=== PATIENT | female | born 1990 | race Two or more races ===

== ENCOUNTER → 2020-08-15 08:51 | Outpatient (BNVA) | payer OTHER, SELFPAY | PROVIDERS: Visit Provider Physician Assistant | DX: E66.3 Overweight (principal); Z68.28 Body mass index [BMI] 28.0-28.9, adult; K90.49 Malabsorption due to intolerance, not elsewhere classified; Z98.84 Bariatric surgery status | CPT/HCPCS: 99024; 99214 ==

== ENCOUNTER → 2020-08-27 08:23 | Outpatient (BNVA) | payer OTHER, SELFPAY | PROVIDERS: PCP Internal Medicine; Visit Provider Physician Assistant | DX: Z76.89 Persons encountering health services in other specified circumstances (principal) ==

== ENCOUNTER → 2020-09-16 08:13 | Outpatient (BNVA) | payer OTHER, SELFPAY | PROVIDERS: PCP Internal Medicine; Visit Provider Dietitian, Registered | DX: Z76.89 Persons encountering health services in other specified circumstances (principal) ==

== ENCOUNTER → 2020-10-17 09:09 | Outpatient (BNVA) | payer OTHER, SELFPAY | PROVIDERS: PCP Internal Medicine; Visit Provider Surgery | DX: E66.3 Overweight (principal); Z68.28 Body mass index [BMI] 28.0-28.9, adult; K91.2 Postsurgical malabsorption, not elsewhere classified; Z90.3 Acquired absence of stomach [part of]; Z98.84 Bariatric surgery status | CPT/HCPCS: 99212 ==

== ENCOUNTER 2020-11-05 09:05 | Outpatient (REF) | payer OTHER, SELFPAY ==
[2020-11-05 10:03] LABS: MANUAL DIFF FLAG NO
[2020-11-05 10:14] LABS: Basophils Percent Auto 0.4 % (0-2); Eosinophils Absolute Auto 0.2 X10*3/uL (0.0-0.4); Hematocrit 38.7 % (37-47); Hemoglobin 12.2 g/dl (12.0-16.0); Imm Gran Abs Auto 0.01 X10*3/uL (0.00-0.03); Imm Gran Pct Auto 0.2 % (0.0-0.4); Lymphocytes Absolute Auto 1.8 X10*3/uL (1.2-4.9); Lymphocytes Percent Auto 37.9 % (20-40); Mean Corpuscular HGB Conc 31.5 g/dl (31.0-35.0); Mean Corpuscular Hemoglobin 28.8 pg (27.0-33.0); Mean Corpuscular Volume 91.5 fL (80-98); Mean Platelet Volume 10.3 fL (9.4-12.3); Monocytes Absolute Auto 0.4 X10*3/uL (0.1-1.2); Monocytes Percent Auto 8.3 % (2-11); Neutrophils Absolute Auto 2.3 X10*3/uL (2.0-8.3); Neutrophils Percent Auto 48.2 % (45-73); Platelet Count 223 X10*3/uL (160-400); Red Blood Count 4.23 X10*6/uL (4.20-5.50); Red Cell Distribution Width 13.4 % (11.0-16.0); White Blood Count 4.8 X10*3/uL (4.8-10.8)
[2020-11-05 10:48] LABS: Alanine Aminotransferase 20 U/L (0-31); Albumin Level 3.9 g/dL (3.5-5.0); Alkaline Phosphatase 37 U/L (39-117); Anion Gap 12 (12-20); Aspartate Amino Transferase 17 U/L (5-31); Bilirubin Total 0.6 mg/dL (0.0-1.0); Blood Urea Nitrogen 21 mg/dL (9-16); Calcium 8.9 mg/dL (8.4-10.2); Carbon Dioxide 27 mmol/L (22-29); Chloride 104 mmol/L (96-108); Cholesterol 132 mg/dL; Estimated Glomerular Filt Rate > 60; Glucose Fasting 79 mg/dL (60-99); HDL Cholesterol 47 mg/dL; Iron 79 mcg/dL (30-160); LDL Cholesterol Calculated 75 mg/dl; Percent Iron Saturation 25 % (15-50); Potassium 4.2 mmol/l (3.3-5.1); Sodium 139 mmol/L (135-145); Total Iron Binding Capacity 322 mcg/dL (228-428); Total Protein 6.3 g/dL (6.5-8.0); Triglycerides 52 mg/dL; Unsaturated Iron Binding 243 ug/dL
[2020-11-05 10:56] LABS: Thyroid Stimulating Hormone 1.57 uIU/mL (0.32-4.0); Vitamin D 25-OH Total 51.1 ng/mL (>30)
[2020-11-05 10:58] LABS: Vitamin B12 765 pg/mL (200-900)
[2020-11-09 11:52] LABS: Vitamin B1 21 nmol/L (8-30)
[2020-11-09 14:32] LABS: Zinc 73 mcg/dL (60-130)
[2020-11-12 12:57] LABS: Vitamin A 26 mcg/dL (38-98)
== END 2020-11-05 09:06 | disposition home or self-care (01) ==
LOC: HO.LAB 09:05
PROVIDERS: PCP Internal Medicine; Visit Provider Surgery
DX: Z01.818 Encounter for other preprocedural examination (principal); K91.2 Postsurgical malabsorption, not elsewhere classified; Z90.3 Acquired absence of stomach [part of]
CPT/HCPCS: 36415; 80053; 80061; 82306; 82607; 83540; 84425; 84443; 84590; 84630; 85025

== ENCOUNTER → 2020-11-19 08:15 | Outpatient (BNVA) | payer OTHER, SELFPAY | PROVIDERS: PCP Internal Medicine; Visit Provider Dietitian, Registered | DX: Z76.89 Persons encountering health services in other specified circumstances (principal) ==

== ENCOUNTER 2021-01-17 09:24 | Outpatient (REF) | payer OTHER, SELFPAY ==
[2021-01-22 23:22] LABS: Vitamin A 30 mcg/dL (38-98)
== END 2021-01-17 09:25 | disposition home or self-care (01) ==
LOC: HO.LAB 09:24
PROVIDERS: PCP Internal Medicine; Visit Provider Surgery
DX: Z01.818 Encounter for other preprocedural examination (principal); E50.9 Vitamin A deficiency, unspecified
CPT/HCPCS: 36415; 84590

== ENCOUNTER → 2021-01-21 08:12 | Outpatient (BNVA) | payer OTHER, SELFPAY | PROVIDERS: PCP Internal Medicine; Visit Provider Surgery ==

== ENCOUNTER 2021-03-04 09:12 | Outpatient (REF) | payer OTHER, SELFPAY ==
[2021-03-08 13:37] LABS: Vitamin A 34 mcg/dL (38-98)
== END 2021-03-04 09:13 | disposition home or self-care (01) ==
LOC: HO.LAB 09:12
PROVIDERS: PCP Internal Medicine; Visit Provider Surgery
DX: Z01.818 Encounter for other preprocedural examination (principal); K91.2 Postsurgical malabsorption, not elsewhere classified; E50.9 Vitamin A deficiency, unspecified; Z98.84 Bariatric surgery status; Z90.3 Acquired absence of stomach [part of]
CPT/HCPCS: 36415; 84590; 99212

== ENCOUNTER 2021-04-04 10:13 | Outpatient (REF) | payer OTHER, SELFPAY ==
[2021-04-04 11:32] LABS: MANUAL DIFF FLAG NO
[2021-04-04 11:51] LABS: Basophils Percent Auto 0.3 % (0-2); Eosinophils Absolute Auto 0.2 X10*3/uL (0.0-0.4); Hematocrit 39.2 % (37-47); Hemoglobin 12.4 g/dl (12.0-16.0); Imm Gran Abs Auto 0.01 X10*3/uL (0.00-0.03); Imm Gran Pct Auto 0.2 % (0.0-0.4); Lymphocytes Absolute Auto 2.3 X10*3/uL (1.2-4.9); Lymphocytes Percent Auto 39.1 % (20-40); Mean Corpuscular HGB Conc 31.6 g/dl (31.0-35.0); Mean Corpuscular Hemoglobin 28.6 pg (27.0-33.0); Mean Corpuscular Volume 90.5 fL (80-98); Mean Platelet Volume 10.1 fL (9.4-12.3); Monocytes Absolute Auto 0.4 X10*3/uL (0.1-1.2); Monocytes Percent Auto 6.9 % (2-11); Neutrophils Absolute Auto 2.9 X10*3/uL (2.0-8.3); Neutrophils Percent Auto 49.5 % (45-73); Platelet Count 240 X10*3/uL (160-400); Red Blood Count 4.33 X10*6/uL (4.20-5.50); Red Cell Distribution Width 13.1 % (11.0-16.0); White Blood Count 5.8 X10*3/uL (4.8-10.8)
[2021-04-04 11:52] LABS: Estimated Average Glucose 94 mg/dL; Hemoglobin A1c % 4.9 %
[2021-04-04 12:12] LABS: Alanine Aminotransferase 26 U/L (0-31); Albumin Level 4.3 g/dL (3.5-5.0); Alkaline Phosphatase 43 U/L (39-117); Anion Gap 13 (12-20); Aspartate Amino Transferase 23 U/L (5-31); Bilirubin Total 0.7 mg/dL (0.0-1.0); Blood Urea Nitrogen 19 mg/dL (9-16); C Reactive Protein 0.06 mg/dL (< or = 0.50); Calcium 9.5 mg/dL (8.4-10.2); Carbon Dioxide 25 mmol/L (22-29); Chloride 105 mmol/L (96-108); Cholesterol 152 mg/dL; Estimated Glomerular Filt Rate > 60; Glucose Random 72 mg/dL (60-115); HDL Cholesterol 61 mg/dL; Iron 67 mcg/dL (30-160); LDL Cholesterol Calculated 80 mg/dl; Percent Iron Saturation 17 % (15-50); Potassium 4.1 mmol/L (3.3-5.1); Sodium 139 mmol/L (135-145); Total Iron Binding Capacity 391 mcg/dL (228-428); Total Protein 6.9 g/dL (6.5-8.0); Triglycerides 59 mg/dL; Unsaturated Iron Binding 324 ug/dL
[2021-04-04 12:28] LABS: Folate > 20.0 ng/mL (> or = 4.0); Vitamin B12 974 pg/mL (200-900)
[2021-04-04 12:47] LABS: Ferritin 14 ng/mL (10-122); TSH reflex Free T4 0.69 uIU/mL (0.32-4.0); Vitamin D 25-OH Total 54.3 ng/mL (>30)
[2021-04-08 13:33] LABS: Calcium (PTHI) 9.5 mg/dL (8.6-10.2); PTHI 44 pg/mL (14-64)
[2021-04-09 01:37] LABS: Zinc 86 mcg/dL (60-130)
[2021-04-09 16:31] LABS: Vitamin A 33 mcg/dL (38-98)
[2021-04-10 07:22] LABS: Vitamin B1 22 nmol/L (8-30)
== END 2021-04-04 10:14 | disposition home or self-care (01) ==
LOC: HO.LAB 10:13
PROVIDERS: Surgery; PCP Internal Medicine; Visit Provider Physician Assistant
DX: Z01.818 Encounter for other preprocedural examination (principal); E66.3 Overweight; E50.9 Vitamin A deficiency, unspecified; F50.9 Eating disorder, unspecified; Z98.84 Bariatric surgery status
CPT/HCPCS: 36415; 80053; 80061; 82306; 82607; 82728; 82746; 83036; 83525; 83540; 83970; 84425; 84443; 84590; 84630; 85025; 86140

== ENCOUNTER → 2021-04-14 09:56 | Outpatient (BNVA) | payer OTHER, SELFPAY | PROVIDERS: PCP Internal Medicine; Visit Provider Surgery | DX: E66.3 Overweight (principal); Z68.26 Body mass index [BMI] 26.0-26.9, adult | CPT/HCPCS: 99212 ==

== ENCOUNTER 2021-06-10 09:50 | Outpatient (REF) | payer OTHER, SELFPAY ==
[2021-06-14 20:55] LABS: Vitamin A 39 mcg/dL (38-98)
== END 2021-06-10 09:51 | disposition home or self-care (01) ==
LOC: HO.LAB 09:50
PROVIDERS: PCP Internal Medicine; Visit Provider Surgery
DX: Z01.818 Encounter for other preprocedural examination (principal); E50.9 Vitamin A deficiency, unspecified
CPT/HCPCS: 36415; 84590

== ENCOUNTER → 2021-06-16 09:04 | Outpatient (BNVA) | payer OTHER, SELFPAY | PROVIDERS: PCP Internal Medicine; Visit Provider Physician Assistant ==

== ENCOUNTER → 2021-06-27 13:37 | Outpatient (BNVA) | payer OTHER, SELFPAY | PROVIDERS: PCP Internal Medicine; Visit Provider Advanced Practice Midwife | DX: Z31.9 Encounter for procreative management, unspecified (principal); E66.3 Overweight; Z68.27 Body mass index [BMI] 27.0-27.9, adult; Z98.84 Bariatric surgery status | CPT/HCPCS: 99212 ==

== ENCOUNTER → 2021-09-10 08:06 | Outpatient (BNVA) | payer OTHER, SELFPAY | PROVIDERS: PCP Internal Medicine; Visit Provider Dietitian, Registered | DX: E66.3 Overweight (principal) | CPT/HCPCS: 97803 ==

== ENCOUNTER → 2021-09-22 09:28 | Outpatient (BNVA) | payer OTHER, SELFPAY | PROVIDERS: PCP Internal Medicine; Referring Provider Internal Medicine; Visit Provider Physician Assistant Surgical | DX: E66.3 Overweight (principal); L98.7 Excessive and redundant skin and subcutaneous tissue; Z68.26 Body mass index [BMI] 26.0-26.9, adult | CPT/HCPCS: 99212 ==

== ENCOUNTER 2021-10-27 08:27 | Outpatient (REF) | payer OTHER, SELFPAY ==
[2021-10-27 09:57] LABS: MANUAL DIFF FLAG NO
[2021-10-27 10:09] LABS: Basophils Percent Auto 0.2 % (0-2); Eosinophils Absolute Auto 0.1 X10*3/uL (0.0-0.4); Eosinophils Percent Auto 1.7 % (0-4); Hematocrit 36.2 % (37.0-47.0); Hemoglobin 11.5 g/dl (12.0-16.0); Imm Gran Abs Auto 0.02 X10*3/uL (0.00-0.03); Imm Gran Pct Auto 0.4 % (0.0-0.4); Lymphocytes Absolute Auto 1.9 X10*3/uL (1.2-4.9); Lymphocytes Percent Auto 37.4 % (20-40); Mean Corpuscular HGB Conc 31.8 g/dl (31.0-35.0); Mean Corpuscular Volume 91.2 fL (80.0-98.0); Mean Platelet Volume 9.4 fL (9.4-12.3); Monocytes Absolute Auto 0.4 X10*3/uL (0.1-1.2); Monocytes Percent Auto 7.5 % (2-11); Neutrophils Absolute Auto 2.7 x10*3/uL (2.0-8.3); Neutrophils Percent Auto 52.8 % (45-73); Platelet Count 270 X10*3/uL (160-400); Red Blood Count 3.97 X10*6/uL (4.20-5.50); Red Cell Distribution Width 13.3 % (11.0-16.0); White Blood Count 5.2 X10*3/uL (4.8-10.8)
[2021-10-27 10:35] LABS: Alanine Aminotransferase 18 U/L (0-31); Albumin Level 3.8 g/dL (3.5-5.0); Alkaline Phosphatase 35 U/L (39-117); Anion Gap 8 (12-20); Aspartate Amino Transferase 19 U/L (5-31); Bilirubin Total 0.6 mg/dL (0.0-1.0); Blood Urea Nitrogen 16 mg/dL (9-16); Calcium 9.3 mg/dL (8.4-10.2); Carbon Dioxide 29 mmol/L (22-29); Chloride 105 mmol/L (96-108); Estimated Glomerular Filt Rate > 60; Glucose Random 71 mg/dL (60-115); Potassium 4.1 mmol/L (3.3-5.1); Sodium 138 mmol/L (135-145); Total Protein 6.5 g/dL (6.5-8.0)
[2021-10-27 10:44] LABS: INTERNATIONAL NORM RATIO 1.1 (0.9-1.1); Prothrombin Time 12.4 SEC (9.9-13.0)
[2021-10-27 10:47] LABS: Partial Thromboplastin Time 34.2 SEC (24.1-38.0)
== END 2021-10-27 08:28 | disposition home or self-care (01) ==
LOC: HO.LAB 08:27
PROVIDERS: PCP Internal Medicine; Referring Provider Internal Medicine; Visit Provider Surgery
DX: M79.3 Panniculitis, unspecified (principal); E66.9 Obesity, unspecified; I10 Essential (primary) hypertension; K90.49 Malabsorption due to intolerance, not elsewhere classified; Z90.3 Acquired absence of stomach [part of]; Z91.018 Allergy to other foods; Z79.899 Other long term (current) drug therapy
CPT/HCPCS: 36415; 80053; 85025; 85610; 85730; 99212

== ENCOUNTER 2021-11-05 06:02 | Day surgery (SDC) | payer OTHER, SELFPAY ==
[2021-10-27 11:05] VITALS: BMI 26.4
--- NOTE | 2021-10-31 23:36 | MHC.SHP ---
Pre-Procedural Eval Section A Date of Service: 10/31/21 The patient is an INPATIENT: No The History & Physical has been completed within 30 days and I have reviewed it.: Yes Section B Chief Complaint: excessive and redundant skin tissue Details of Present Illness: panniculitis Relevant Family History (Specify if Yes): No Relevant Social History: None Present Medications: None Medical History: No relevant PMH History of Previous Operations: Relevant previous surgery/procedure and date(s) (Sleeve gastrectomy) Allergies: Allergies Allergy/AdvReac Type Severity Reaction Status Date / Time almond [ALMOND] Allergy Unknown DIFF Verified 10/27/21 08:43 BREATHING Review of Systems Sugical H&P ROS: Negative: Constitution, Cardiovascular, Respiratory, Neurological, Psychiatric, Hem-Onc, Allergic/Immunologic, Gastrointestinal, Genitourinary, Musculoskeletal, Integumentary, Endocrine and Eyes/Ears/Nose/Throat Exam Surgical H&P Exam: Normal: HEENT, Normal: Heart, Normal: Lungs, Normal: Extremities, Normal: Abdomen, Normal: Skin and Normal: Neurological Plan Diagnosis/Plan: Unchanged I have reviewed the history and physical and performed a pertinent physical examination on my patient. No changes have occurred unless specified.
[2021-11-05] VITALS (11 sets, daily range): BP systolic 111–126; BP diastolic 47–73; PULSE 55–75; RESP 14–18; TEMP 36.1–37.2; O2SAT 98–100
[2021-11-05 06:25] LABS: UPreg QC Valid YES; Urine Pregnancy NEGATIVE (NEGATIVE)
[2021-11-05 06:41] LABS: COVID-19 Test Negative (Negative)
[2021-11-05] MEDS: Lactated Ringers 1,000 ML 80 ML IVCONT (06:45)
--- NOTE | 2021-11-05 07:16 | P.CONAN_ITS ---
[facility] Active Problems Active Problems: All Active Problems (Updated 10/27/21 @ 08:36 by Dirk patton MD) Panniculitis (Acute) Excessive and redundant skin and subcutaneous tissue (Acute) Patient desires (Acute) Overweight (BMI 25.0-29.9) (Acute) BMI 26.0-26.9,adult (Acute) Eating disorder (Acute) Vitamin A deficiency (Acute) Hypertension (Acute) Body mass index (BMI) of 28.0-28.9 in adult (Acute) Intestinal malabsorption following gastrectomy (Acute) S/P laparoscopic sleeve gastrectomy (Acute) Lumbar degenerative disc disease (Acute) Malabsorption due to intolerance, not elsewhere classified (Acute) Past Medical History Medical History Arthritis of knee Back pain Cyst of left breast Hypertension Lumbar degenerative disc disease Malabsorption due to intolerance, not elsewhere classified Migraines Obesity (BMI 30-39.9) Family History Family History Father No problems noted. Mother Hypertension Sister No problems noted. Family history of problems with anesthesia: No Surgical History Surgical History S/P laparoscopic sleeve gastrectomy History of Problems with Anesthesia: No Social History Social History Are you a primary rn progressive care to a significant other at home: No Do you presently have visiting nurse or other home services: No Alcohol intake: unknown Patient Tobacco Use Status: Never used Tobacco Use of substances other than those prescribed or required for medical reasons: No Have you been hit, kicked, punched, or otherwise hurt by someone within the past year? If so, by whom?: No Are you DNR?: No Advance Directives: No Advance Directives Information Provided: Yes Advance Directives on File: No Recently lost weight without trying: No Patient : No FDLMP: 10/14/2021 : No Poor oral hygiene: No Meds Allergies Allergy/AdvReac Type Severity Reaction Status Date / Time almond [ALMOND] Allergy Unknown DIFF Verified 10/27/21 08:43 BREATHING Active Medications: Current Medications Lactated Ringer's (Lr) 1,000 mls @ 80 mls/hr IVCONT .[id number] [facility] Last Admin: 11/05/21 06:45 Dose: 80 mls/hr Documented by: Home Medications Medication Instructions Recorded Confirmed Last Taken Type biotin 10 mg tablet 10 mg PO DAILY 08/16/20 10/27/21 Unknown History calcium citrate 1,000 mg tablet 1,000 mg PO DAILY 01/21/21 10/27/21 Unknown History beibsjjh-[id number]-[id number] 45 mg-folic 1 cap PO DAILY cap 04/14/21 10/27/21 Unknown History acid 800 mcg-vit K 120 mcg capsule (Bariatric Multivitamins) Exam Exam Date and Time: November 05, 2021 0716 Height,Weight and Vital Signs: Height 5 ft 4 in Weight 69.853 kg Last Vital Signs Temp 98.1 F 11/05/21 06:20 Pulse 59 11/05/21 06:20 Resp 16 11/05/21 06:20 BP 117/64 11/05/21 06:20 Pulse Ox 98 11/05/21 06:20 Pertinent Lab Results Pertinent Lab Results: Laboratory Tests 10/27/21 11/05/21 11/05/21 09:47 06:10 06:10 Urine Test NEGATIVE COVID-19 (CHRISTA) Negative COVID-19 Clin Com See Note Blood Type A Positive Antibody Screen NEGATIVE Airway Mallampati Class: I TM Dist: >3cm Neck ROM: Full Assessment and Plan Assessment Anesthesia Assessment: Anesthesia Plan Discussed and Chart Reviewed Final Anesthetic Review Family History of Problems with Anesthesia: No History of Problems with Anesthesia: No NPO: Yes ASA Class: II Final Preanesthetic Review: No Changes in Pt Med Stat, Meds/Allgs Chart Reviewed, Consent Obtained/Reviewed and Anes Risks/Benef Reviewed Patient Risk: Low Procedure Risk: Intermediate Anesthetic Plan Anesthetic Plan: GA Disposition: Standard PACU
--- NOTE | 2021-11-05 08:16 | PM.OP ---
Brief Operative Note Date of Service: 11/05/21 Pre-op diagnosis: panniculitis and excess skin Post-op diagnosis: same Procedure: PROCEDURE: Panniculectomy with umbilical transposition and subcutaneous fat flap, bilateral brachioplasty INDICATION: This a 68 year old female who underwent laparoscopic sleeve gastrectomy. She had an excellent result achieving a BMI of 26.5 kg/m2 with a total weight loss of 73.9lbs, or 32.2% of her TBWL. As a result, she has developed panniculitis which has not resolved despite continuous use of clotrimazole ointment as well as skin irritation and intetrigo in both upper arms. On exam she has extreme skin laxity due to massive weight loss and age with the abdominal pannus completely hiding the genitalia and the upper arms 6 cm below the level of the triceps. Panniculectomy with bilateral brachioplasty was recommended. We discussed the two options for the panniculectomy of using a combined vertical and horizontal incisions or just a horizontal (bikini) incision. It was my recommendation to do only horizontal incision based on her body habitus and skin laxity. The patient agreed with this. Risks and complications were discussed with the patient including bleeding, infection, umbilical loss, flap necrosis, asymmetry, dehiscence, seroma, VTE. The patient understood the risks and was in agreement to proceed with surgery. PROCEDURE: The incisions were appropriately marked at the preop area with the patient standing and laying down. After induction of general anesthesia a Smith catheter and pneumatic compression devices were placed. The patient was prepped and draped in the usual sterile manner and the incisions were marked again and confirmed. In similar fashion both upper arms were also marked when the patient was standing. The upper arms were performed first. The skin was infiltrated with lidocaine and epinephrine. Skin was excised with the #15 blade. Cautery was used to separate the skin from subcutaneous tissues. Careful attention was paid to make sure that the plain of excision was superficial as close to the skin as possible. The right upper arm skin was 30 cm x 10 cm and the left 28 cm x 10 cm. and both weighed 2.6oz. Skin was closed in two layers using interrupted 3.0 Monocryl sutures for the dermis and 4.0 subcuticular Monocryl suture for the skin. The skin was infiltrated with lidocaine and epinephrine. The #10 blade scalpel was used for the large incisions and the #15 blade scalpel for the umbilicus. Cautery was used to divide the subcutaneous tissues until the fascia was identified. Then I used the Thunderbeat (Olympus) to separate the pannus from the fascia. The inferior incision was made initially and I mobilized the flap for a several centimeters cephalad to the umbilicus. The umbilicus was incised circumferentially and detached from the surrounding tissues all the way to the fascia while its stalk was preserved. With the patient in reflex position I confirmed that the skin flaps were appropriate and would allow for the tissues to come together with reasonable tension. At that point a horizontal incision was made 4 cm above the umbilicus. #10 blade was used for the skin, cautery for the dermis and the Thunderbeat for the remaining tissues. An subcutaneous fat flap was raised from the upper flap in order to fill the space under the skin and support the closure of the two flaps. In addition the inferior flap was mobilized caudally for a few centimeters to create a space for the omental flap as well as relieve tension from the closure. A circumferential incision was made at the area where the umbilicus would be re-implanted. The umbilicus was appropriately oriented and was delivered through the defect and was secured in place with a Angel. The abdominal pannus weighed 3lbs and 12.2oz. No bleeding was noted anywhere. One Edin drain was placed from the right corner of the horizontal incision across the wound and was secured in place with a silk suture. The omental flap was secured under the inferior flap with several interrupted 3.0 Monocryl sutures. The two flaps were brought together and were attached at the midline of the horizontal incision with a #3.0 Monocryl suture. At that point the umbilicus was properly oriented and was re-approximated to the skin with 8 interrupted 3.0 Monocryl sutures. In a similar fashion the skin flaps were re-approximated with multiple 3.0 Monocryl sutures. The skin was closed in all incisions and umbilicus with 4.0 Monocryl sutures. Steri-strips, xeroform gauzes and gauzes were used to cover the incisions. An abdominal binder was also placed. The was awaken and was transferred to the recover room in a stable condition. I was present and performed the entire procedure. Ms. Guo was the registered nurse first assistant. Mike العلي MD, PhD, FACS Surgeon: Dirk العلي MD Surgeon: Dirk العلي MD Anesthesia: GETA and local Was an Event Sales Representative used for this Procedure?: No Event Sales Representative: Serafin Tenorio Estimated blood loss (mL): 10 IV fluids (mL): 3,000 Urine output (mL): 1,000 Pathology: other (1) abdominal pannus, 2) Right upper arm skin, 3) Left upper arm skin) Condition: stable Disposition: PACU
--- NOTE | 2021-11-05 08:17 | P.PNGS_ITS ---
Subjective Subjective Date of Service: 11/06/21 Interval history: Feels well. Mild incisional pain Physical Exam Vital Signs: Vital Signs: Last Vital Signs Temp 98.1 F 11/05/21 06:20 Pulse 59 11/05/21 06:20 Resp 16 11/05/21 06:20 BP 117/64 11/05/21 06:20 Pulse Ox 98 11/05/21 06:20 BMI result Body Mass Index 26.4 GI: Inspection: Yes incision (flaps and umbilicus are viable) and Yes other (drain with small amount of serosanguinous fluid) Extrem: Right upper extremity: shoulder/upper arm (flaps are viable, no erythema or discharge) Left upper extremity: shoulder/upper arm (flaps are viable, no erythema or discharge) Right lower extremity: normal to inspection (no calf tenderness) Left lower extremity: normal to inspection (no calf tenderness) Objective Data Active Medications Fentanyl (Fentanyl Citrate/Pf 100 Mcg/2 Ml Vial) 50 mcg IVPUSH Q5M PRN; Protocol PRN Reason: Pain, Severe (Pain Scale 7-10) Lactated Ringer's (Lr) 1,000 mls @ 80 mls/hr IVCONT .[id number] ON LICENSE OF [facility] Last Admin: 11/05/21 06:45 Dose: 80 mls/hr Documented by: SAMMI Lactated Ringer's (Lr) 1,000 mls @ 100 mls/hr IVCONT .Q10H ON LICENSE OF [facility] Ondansetron HCl (Ondansetron Hcl 4 Mg/2 Ml Vial) 4 mg IVPUSH ONCE PRN PRN Reason: Nausea and Vomiting Oxycodone HCl (Oxycodone Hcl Immed Release 5 Mg Tablet) 5 mg PO ONCE PRN PRN Reason: Pain, Severe (Pain Scale 7-10) Labs CBC & Chem 7: 11/06/21 05:38 11/06/21 05:38 Labs: Laboratory Results - last 24 hr 11/05/21 11/05/21 06:10 06:10 Urine Test NEGATIVE COVID-19 ([facility]RISTA) Negative COVID-19 Clin Com See Note Procedures Date of Service Date of Service: 11/06/21 Progress Note: A&P Assessment and plan (1) Panniculitis: Status: Acute Assessment and Plan: s/p panniculectomy and bilateral brachioplasty Doing well Dressings were changed. D/C Smith Will check am labs. If OK and patient ambuates well, will discharge later today Fall Risk Details Current Medications: Current Medications Fentanyl (Fentanyl Citrate/Pf 100 Mcg/2 Ml Vial) 50 mcg IVPUSH Q5M PRN; Protocol PRN Reason: Pain, Severe (Pain Scale 7-10) Lactated Ringer's (Lr) 1,000 mls @ 80 mls/hr IVCONT .[id number] ON LICENSE OF [facility] Last Admin: 11/05/21 06:45 Dose: 80 mls/hr Documented by: Lactated Ringer's (Lr) 1,000 mls @ 100 mls/hr IVCONT .Q10H ON LICENSE OF [facility] Ondansetron HCl (Ondansetron Hcl 4 Mg/2 Ml Vial) 4 mg IVPUSH ONCE PRN PRN Reason: Nausea and Vomiting Oxycodone HCl (Oxycodone Hcl Immed Release 5 Mg Tablet) 5 mg PO ONCE PRN PRN Reason: Pain, Severe (Pain Scale 7-10) Time Spent With Patient Time: Total time spent is greater than 50% in coordination of care (as documented) at patient's floor/unit and/or counseling patient: Time with patient: 15 - 24 minutes Quality Stroke Does the patient have a stroke diagnosis?: No VTE Prior VTE?: No VTE Risk Level:: Surgical - moderate VTE Device Contraindication: N/A - Device Ordered VTE Drug Contraindication: Treatment Not Indicated
--- NOTE | 2021-11-05 16:31 | PM.DS ---
DS: Providers Provider Date of Service: 11/06/21 Primary care physician: Hiwot Ferguson MD DS: Diagnosis Discharge Diagnosis (1) Panniculitis: Status: Acute DS: Summary Time Spent with Patient Time attestation: Total time spent providing and/or coordinating discharge services: Discharge coordination time: Less than 30 minutes Quality: Stroke Does the patient have a stroke diagnosis?: No Physical Exam Vital Signs: Vital Signs: Last Vital Signs Temp 98.9 F 11/05/21 16:10 Pulse 63 11/05/21 16:20 Resp 16 11/05/21 16:20 BP 118/69 11/05/21 16:20 Pulse Ox 100 11/05/21 16:20 BMI result Body Mass Index 26.4 DS: Data Data Completed and Pending Pending studies at discharge: Pending at discharge 11/05/21 14:04 Surgical [PTH] Routine Labs on day of discharge: Laboratory Results - last 24 hr 11/05/21 11/05/21 06:10 06:10 Urine Test NEGATIVE COVID-19 ([facility]STA) Negative COVID-19 Clin Com See Note
[2021-11-05 17:10] LABS: Hematocrit 36.3 % (37.0-47.0); Hemoglobin 11.8 g/dl (12.0-16.0)
[2021-11-05] MEDS: Lactated Ringers 1,000 ML 100 ML IVCONT (17:15)
[2021-11-05] MEDS: ceFAZolin Sodium/Dextrose,Iso 2 GM/50 ML PIGGYBACK IV (17:55)
[2021-11-05] MEDS: ondansetron HCL 4 MG/2 ML VIAL IVPUSH (21:18)
[2021-11-05] MEDS: Famotidine/PF 20 MG/2 ML VIAL IVPUSH (21:18)
[2021-11-05] MEDS: 0.9 % Sodium Chloride Flush 3 ML SYRINGE IVFLUSH (21:18)
[2021-11-06] MEDS: Lactated Ringers 1,000 ML 100 ML IVCONT (03:22)
[2021-11-06 04:00] VITALS: BP 112/62; PULSE 79; RESP 18; TEMP 36; O2SAT 98
[2021-11-06] MEDS: ceFAZolin Sodium/Dextrose,Iso 2 GM/50 ML PIGGYBACK IV ×2 (05:31)
[2021-11-06] MEDS: ondansetron HCL 4 MG/2 ML VIAL IVPUSH (05:31)
[2021-11-06 05:53] LABS: MANUAL DIFF FLAG NO
[2021-11-06 06:00] LABS: Basophils Percent Auto 0.2 % (0-2); Eosinophils Absolute Auto 0.1 X10*3/uL (0.0-0.4); Eosinophils Percent Auto 0.7 % (0-4); Hematocrit 32.1 % (37.0-47.0); Hemoglobin 10.2 g/dl (12.0-16.0); Imm Gran Abs Auto 0.04 X10*3/uL (0.00-0.03); Imm Gran Pct Auto 0.4 % (0.0-0.4); Lymphocytes Absolute Auto 2.3 X10*3/uL (1.2-4.9); Lymphocytes Percent Auto 21.9 % (20-40); Mean Corpuscular HGB Conc 31.8 g/dl (31.0-35.0); Mean Corpuscular Hemoglobin 29.2 pg (27.0-33.0); Mean Platelet Volume 9.8 fL (9.4-12.3); Monocytes Absolute Auto 0.9 X10*3/uL (0.1-1.2); Monocytes Percent Auto 8.5 % (2-11); Neutrophils Absolute Auto 7.2 x10*3/uL (2.0-8.3); Neutrophils Percent Auto 68.3 % (45-73); Platelet Count 165 X10*3/uL (160-400); Red Blood Count 3.49 X10*6/uL (4.20-5.50); Red Cell Distribution Width 13.4 % (11.0-16.0); White Blood Count 10.6 X10*3/uL (4.8-10.8)
[2021-11-06 06:27] LABS: Anion Gap 8 (12-20); Blood Urea Nitrogen 15 mg/dL (9-16); Calcium 8.5 mg/dL (8.4-10.2); Carbon Dioxide 25 mmol/L (22-29); Chloride 107 mmol/L (96-108); Estimated Glomerular Filt Rate > 60; Glucose Random 75 mg/dL (60-115); Potassium 4.3 mmol/L (3.3-5.1); Sodium 136 mmol/L (135-145)
[2021-11-06 07:08] VITALS: BP 112/58; PULSE 70; RESP 16; TEMP 36.3; O2SAT 100
[2021-11-06] MEDS: Famotidine/PF 20 MG/2 ML VIAL IVPUSH (07:19)
--- NOTE | 2021-11-06 09:36 | MHC.CM.PN ---
EMR REVIEWED, PT S/P PANNILECTOMY AND BILAT BRACHIPLASTYM CM MET W/PT VIA TELEPHONE ORDER CLERK ROOM SERVICE WHO REPORTS SHE WILL BE STAYING W/HER PARENTS AT [address] [place] [address] IN [place], NA IS AWARE, PT IS INDEPENDENT W/ALL CARE, NO DME OR SERVICES, PT HAS NOT SEEN HER PCP HOWEVER HAS A FIRST APPT W/[facility] ON 11/18/20, SURGICAL PA AGREEABLE TO SIGN VNA ORDERS NEEDED HOWEVER PT PLANS ON RETURNING TO [place] IN 1 WEEK, PT REPORTS HER MOTHER WILL COMING W/HER IN CASE SHE HAS A NEEDS THAT COME UP. D/C PLAN: HOME TODAY W/[facility] FOR INTERMEDIATE, FAMILY FOR TRANSPORT
--- NOTE | 2021-11-06 16:48 | W.MHC.F2F ---
Service Date Service Date: 11/06/21 Encounter Date of encounter: 11/06/21 Reasons for Services Reason for fci: postoperative assessment and/or care MD Overseeing Care: Dirk العلي Homebound: Leaving the home is medically contraindicated at this time without the asist of a device and/or another person due th the listed conditions above and below. Reason homebound: pain with transfers Certification: Based on the above findings, I certify that this patient is confined to the home and needs intermittent fci care, physical therapy and/or speech therapy, or continues to need occupational therapy. The patient is under my care, and I have initiated the establishment of the plan of care. The patient will be followed by a physician who will periodically review the plan of care.
== END 2021-11-06 10:28 | disposition home health service (06) ==
LOC: HO.SSS 16:29 → HO.S3 21:29
PROVIDERS: Anesthesiology; Physician Assistant Surgical; PCP Internal Medicine; Visit Provider Surgery
PROC: 0JB80ZZ Excision of Abdomen Subcutaneous Tissue and Fascia, Open Approach (ICD-10-PCS; CPT 15830; principal; 2021-11-05 07:30)
PROC: (CPT 15836; 2021-11-05 07:30)
DX: M79.3 Panniculitis, unspecified (principal); L98.7 Excessive and redundant skin and subcutaneous tissue; Z86.19 Personal history of other infectious and parasitic diseases; Z98.84 Bariatric surgery status; K90.49 Malabsorption due to intolerance, not elsewhere classified; E66.9 Obesity, unspecified; M51.36 Other intervertebral disc degeneration, lumbar region; M54.50 Low back pain, unspecified; M17.10 Unilateral primary osteoarthritis, unspecified knee; I10 Essential (primary) hypertension; Z79.899 Other long term (current) drug therapy; Z68.26 Body mass index [BMI] 26.0-26.9, adult
CPT/HCPCS: 15830; 15836; 36415; 80048; 81025; 85014; 85018; 85025; 86850; 86900; 86901; 87635; 88304; 99024; C1758; J0131; J0690; J1100; J1170; J2250; J2405; J3010

== ENCOUNTER → 2021-11-13 10:00 | Outpatient (BNVA) | payer OTHER, SELFPAY | PROVIDERS: PCP Internal Medicine; Referring Provider Internal Medicine; Visit Provider Surgery | DX: Z98.890 Other specified postprocedural states (principal) | CPT/HCPCS: 99212 ==

== ENCOUNTER → 2021-11-24 09:36 | Outpatient (BNVA) | payer OTHER, SELFPAY | PROVIDERS: PCP Internal Medicine; Referring Provider Internal Medicine; Visit Provider Surgery | DX: Z98.890 Other specified postprocedural states (principal) | CPT/HCPCS: 99212 ==

== ENCOUNTER 2022-04-01 11:18 | Outpatient (REF) | payer OTHER, SELFPAY ==
[2022-04-01 11:59] LABS: MANUAL DIFF FLAG NO
[2022-04-01 12:12] LABS: Basophils Percent Auto 0.4 % (0-2); Eosinophils Absolute Auto 0.2 X10*3/uL (0.0-0.4); Eosinophils Percent Auto 4.3 % (0-4); Hematocrit 41.5 % (37.0-47.0); Hemoglobin 13.1 g/dl (12.0-16.0); Imm Gran Abs Auto 0.01 X10*3/uL (0.00-0.03); Imm Gran Pct Auto 0.2 % (0.0-0.4); Lymphocytes Absolute Auto 1.9 X10*3/uL (1.2-4.9); Lymphocytes Percent Auto 36.8 % (20-40); Mean Corpuscular HGB Conc 31.6 g/dl (31.0-35.0); Mean Corpuscular Hemoglobin 28.5 pg (27.0-33.0); Mean Corpuscular Volume 90.4 fL (80.0-98.0); Mean Platelet Volume 9.4 fL (9.4-12.3); Monocytes Absolute Auto 0.4 X10*3/uL (0.1-1.2); Monocytes Percent Auto 8.2 % (2-11); Neutrophils Absolute Auto 2.6 x10*3/uL (2.0-8.3); Neutrophils Percent Auto 50.1 % (45-73); Platelet Count 268 X10*3/uL (160-400); Red Blood Count 4.59 X10*6/uL (4.20-5.50); Red Cell Distribution Width 13.2 % (11.0-16.0); White Blood Count 5.1 X10*3/uL (4.8-10.8)
[2022-04-01 13:09] LABS: Alanine Aminotransferase 24 U/L (0-31); Albumin Level 4.1 g/dL (3.5-5.0); Alkaline Phosphatase 35 U/L (39-117); Anion Gap 10 (12-20); Aspartate Amino Transferase 20 U/L (5-31); Bilirubin Total 0.6 mg/dL (0.0-1.0); Blood Urea Nitrogen 17 mg/dL (9-16); Calcium 9.5 mg/dL (8.4-10.2); Carbon Dioxide 27 mmol/L (22-29); Chloride 108 mmol/L (96-108); Cholesterol 148 mg/dL; Estimated Glomerular Filt Rate > 60; Glucose Fasting 77 mg/dL (60-99); HDL Cholesterol 50 mg/dL; Iron 103 mcg/dL (30-160); LDL Cholesterol Calculated 86 mg/dl; Percent Iron Saturation 28 % (15-50); Potassium 4.5 mmol/L (3.3-5.1); Sodium 140 mmol/L (135-145); Total Iron Binding Capacity 371 mcg/dL (228-428); Total Protein 7.1 g/dL (6.5-8.0); Triglycerides 62 mg/dL; Unsaturated Iron Binding 268 ug/dL
[2022-04-07 14:50] LABS: Vitamin D 25-OH, D2 <4 ng/mL; Vitamin D 25-OH, D3 37 ng/mL; Vitamin D 25-OH, Total 37 ng/mL (30-100)
== END 2022-04-01 11:19 | disposition home or self-care (01) ==
LOC: HO.LAB 11:18
PROVIDERS: PCP Internal Medicine; Visit Provider Internal Medicine
DX: Z00.00 Encounter for general adult medical examination without abnormal findings (principal); D64.9 Anemia, unspecified; E55.9 Vitamin D deficiency, unspecified
CPT/HCPCS: 36415; 80053; 80061; 82306; 83540; 85025